=== PATIENT | male | born 1965 | race Caucasian/White ===

== ENCOUNTER 2016-11-09 01:08 | Emergency (ER) | payer OTHER ==
[~2016-11-09] VITALS: Ht 165.1 cm; Wt 76.2 kg
[2016-11-09 03:52] VITALS: BP 132/72
== END 2016-11-09 03:53 ==
LOC: ER 01:08
DX: S06.0X0A Concussion without loss of consciousness, initial encounter (principal); S02.91XB Unspecified fracture of skull, initial encounter for open fracture; S02.92XB Unspecified fracture of facial bones, initial encounter for open fracture; S02.401A Maxillary fracture, unspecified side, initial encounter for closed fracture; Y04.0XXA Assault by unarmed brawl or fight, initial encounter; Y93.89 Activity, other specified; Y99.9 Unspecified external cause status; Y92.149 Unspecified place in prison as the place of occurrence of the external cause
CPT/HCPCS: 70486